=== PATIENT | male | born 1945 | race Caucasian/White ===

== ENCOUNTER 2020-12-07 11:17 | Emergency (ER) | payer MEDICARE, MEDICAID ==
[~2020-12-07] VITALS: Ht 177.8 cm; Wt 91.9 kg
--- NOTE | 2020-12-07 12:06 | PHYS DOC ---
Past History Past Medical History: CAD, High Cholesterol, Heart Disease, Hypertension, Hypothyroid Past Surgical History: Coronary Bypass Surgery, Tonsillectomy Alcohol Use: None Adult General Chief Complaint Chief Complaint: WEAKNESS/GENERALIZED HPI HPI Patient is a 75-year-old male who presents with for generalized weakness. No known inciting event, ingestion, recent illness or significant medical changes. Reports weakness has been ongoing for past 1 to 2 weeks. States over past 72 hours he has had less desire to eat eat and/or drink which is unusual for him. Also states he has decreased motivation and will to get up and do things he typically enjoys doing. He has extensive past medical history, has good access to primary care physician and specialist in outpatient setting, he has been not talked to them recently about recent episode of weakness. Of note, patient does admit that he has not been using home sleep at device for past several days due to not feeling motivated to put it on Review of Systems Review of Systems Fourteen body systems of review of systems have been reviewed. See HPI for pertinent positives and negative responses, other tao all other systems are negative, non-pertinent or non-contributory Allergies Allergies Allergies Coded Allergies Type Severity Reaction Last Updated Verified No Known Drug Allergies 12/07/20 No Physical Exam Physical Exam Constitutional: Well developed, well nourished, no acute distress, non-toxic appearance. HENT: Normocephalic, atraumatic, bilateral external ears normal, oropharynx dry, no oral exudates, nose normal. Eyes: PERRLA, EOMI, conjunctiva normal, no discharge. Neck: Normal range of motion, no tenderness, supple, no stridor. Cardiovascular: Heart rate regular, irregular rhythm consistent with atrial fibrillation, no murmurs rubs or gallops Lungs & Thorax: Bilateral breath sounds clear to auscultation Abdomen: Bowel sounds normal, soft, no tenderness, no masses, no pulsatile masses. Nonsurgical abdomen, no peritoneal signs Skin: Warm, dry, no erythema, no rash. Back: No tenderness, no CVA tenderness. Extremities: No tenderness, no cyanosis, no clubbing, ROM intact, no edema. Neurologic: Alert and oriented X 3, cranial nerves II through XII intact, normal motor & sensory function, no focal deficits noted. Psychologic: Affect normal, judgement normal, mood normal. Current Patient Data Vital Signs Vital Signs Date Time Temp Pulse Resp B/P (MAP) Pulse Ox O2 Delivery O2 Flow Rate FiO2 12/07/20 11:42 99.1 62 18 106/59 (75) 95 Room Air Lab Results Laboratory Tests Test 12/07/20 11:40 12/07/20 14:00 12/07/20 14:25 White Blood Count 4.6 x10^3/uL Red Blood Count 4.65 x10^6/uL Hemoglobin 15.4 g/dL Hematocrit 45.2 % Mean Corpuscular Volume 97 fL Mean Corpuscular Hemoglobin 33 pg Mean Corpuscular Hemoglobin Concent 34 g/dL Red Cell Distribution Width 12.7 % Platelet Count 145 x10^3/uL Neutrophils (%) (Auto) 58 % Lymphocytes (%) (Auto) 32 % Monocytes (%) (Auto) 9 % Eosinophils (%) (Auto) 0 % Basophils (%) (Auto) 1 % Neutrophils # (Auto) 2.7 x10^3uL Lymphocytes # (Auto) 1.5 x10^3/uL Monocytes # (Auto) 0.4 x10^3/uL Eosinophils # (Auto) 0.0 x10^3/uL Basophils # (Auto) 0.0 x10^3/uL Sodium Level 134 mmol/L Potassium Level 4.0 mmol/L Chloride Level 97 mmol/L Carbon Dioxide Level 30 mmol/L Anion Gap 7 Blood Urea Nitrogen 16 mg/dL Creatinine 1.3 mg/dL Estimated GFR (Cockcroft-Gault) 53.8 BUN/Creatinine Ratio 12 Glucose Level 139 mg/dL Calcium Level 8.7 mg/dL Total Bilirubin 0.7 mg/dL Aspartate Amino Transf (AST/SGOT) 37 U/L Alanine Aminotransferase (ALT/SGPT) 35 U/L Alkaline Phosphatase 82 U/L Troponin I Quantitative < 0.017 ng/mL KE-Gxs-H-Type Natriuretic Peptide 399 pg/mL Total Protein 7.0 g/dL Albumin 3.5 g/dL Albumin/Globulin Ratio 1.0 Urine Collection Type Unknown Urine Color Yellow Urine Clarity Clear Urine pH 6.0 Urine Specific [place] 1.020 Urine Protein Neg Urine Glucose (UA) Neg mg/dL Urine Ketones (Stick) Neg mg/dL Urine Blood Trace Urine Nitrite Neg Urine Bilirubin Neg Urine Urobilinogen Dipstick 0.2 mg/dL Urine Leukocyte Esterase Neg Urine RBC 1-2 /HPF Urine WBC Occ /HPF Urine Squamous Epithelial Cells Occ /LPF Urine Bacteria 0 /HPF Bedside Venous pH 7.39 Bedside Venous pCO2 46 mmHg Bedside Venous pO2 23 mmHg Venous Blood HCO3 28 mmol/L POC Venous O2 Saturation (Minh) 39 % Bedside FiO2 32 Current Medications Medications (Trade) Dose Ordered Sig/Terence Route PRN Reason Start Time Stop Time Status Last Admin Dose Admin Sodium Chloride 500 ml @ 0 mls/hr 1X ONCE IV 12/07/20 12:45 12/07/20 12:53 DC 12/07/20 12:45 EKG EKG EKG ordered and interpreted by myself at 1150 hrs. as atrial fibrillation with a rate of 65 bpm, unremarkable intervals, left axis deviation, no obvious ischemic findings, no STEMI Radiology/Procedures Radiology/Procedures EXAM: Chest, single view. HISTORY: Weakness. COMPARISON: None. FINDINGS: A frontal view of the chest is obtained. There is no infiltrate, pleur al fusion or pneumothorax. There is a prominent cardiac silhouette and evidence of prior CABG. There is an incidental healed right clavicle fracture. IMPRESSION: No acute pulmonary finding. Prominent cardiac silhouette. Electronically signed by: Sweetie Cormier MD (12/07/2020 12:18 PM) [id number] Heart Score C/O Chest Pain: No HEART Score for Chest Pain: HEART Score for Chest Pain Response (Comments) Value History Moderately Suspicious 1 ECG Normal 0 Age > 65 2 Risk Factors >3 Risk Factors or Hx CAD 2 Troponin < Normal Limit 0 Total 5 Risk Factors: Risk Factors: DM, Current or recent (<one month) smoker, HTN, HLP, family history of CAD, obesity. Risk Scores: Risk Factors: DM, Current or recent (<one month) smoker, HTN, HLP, family history of CAD, obesity. Course & Med Decision Making Course & Med Decision Making Discussed with the patient all findings and diagnostic testing. I discussed most likely diagnosis of generalized weakness with no emergent and/or surgical findings or cause at present that necessitates further diagnostic work-up in ER setting and/or hospital admission. I did discuss utility of hospital admission with on-call hospitalist at [facility] but my request was declined due to lack of criteria. As such, I stressed need for close outpatient follow-up to review today's ER visit. I recommended patient restart wearing CPAP as instructed during sleeping. I also advised patient to increase p.o. intake with nutritional supplements such as boost or Ensure shakes. I screened patient for depression, denies SI/HI, this could be something which is contributing to patient's presentation today. Strict return precautions were also discussed at length with good understanding by patient. Patient voiced understanding and agreement with the plan. Patient knows to come back for repeat evaluation if concerning signs or symptoms present prior to outpatient follow-up. Hemodynamically stable, ambulatory and well-appearing at time of disposition. Dragon Disclaimer Dragon Disclaimer This electronic medical record was generated, in whole or in part, using a voice recognition dictation system. Departure Departure: Impression: Primary Impression: Weakness Disposition: HOME / SELF CARE / HOMELESS Condition: STABLE Referrals: EDGARDO LOOMIS (PCP) Patient Instructions: Weakness Additional Instructions: As discussed prior to ER departure, your vital signs, physical exam, laboratory analysis and radiographs were all unremarkable for any emergent or surgical issues. As discussed, you need to ensure you utilize your CPAP when sleeping. You need to contact your primary care physician and I recommend remote mortgage underwriter immediately after your departure to review your ER visit today and need for close outpatient follow-up in upcoming 3 to 5 days for repeat evaluation. I did disclose this might be an acute presentation of more concerning pathology and so, close observation of your symptoms and low threshold to return for care is advised. Any concerning signs or symptoms present prior to outpatient follow-up please do not hesitate to come back for repeat evaluation. It was a pleasure to take care of you and I wish you the best going forward ERICKSON CACERES DO Dec 07, 2020 12:06
[2020-12-07 12:11] LABS: BASO % 1 % (0-3); EOS % 0 % (0-3); HEMATOCRIT 45.2 % (39.0-53.0); HEMOGLOBIN 15.4 g/dL (13.0-17.5); LYMPH # 1.5 x10^3/uL (1.0-4.8); LYMPH % 32 % (24-48); MEAN CORPUSCULAR HEMOGLOBIN 33 pg (25-35); MEAN CORPUSCULAR HGB CONC 34 g/dL (31-37); MEAN CORPUSCULAR VOLUME 97 fL (79-100); MONO # 0.4 x10^3/uL (0.0-1.1); MONO % 9 % (0-9); NEUT # 2.7 x10^3uL (1.8-7.7); NEUT % 58 % (31-73); PLATELET COUNT 145 x10^3/uL (140-400); RED BLOOD COUNT 4.65 x10^6/uL (4.30-5.70); RED CELL DISTRIBUTION WIDTH 12.7 % (11.5-14.5); WHITE BLOOD COUNT 4.6 x10^3/uL (4.0-11.0)
[2020-12-07 12:14] LABS: CALCIUM 8.7 mg/dL (8.5-10.1); CREATININE 1.3 mg/dL (0.7-1.3); GFR 53.8
--- NOTE | 2020-12-07 12:20 | RAD ---
EXAM: Chest, single view. HISTORY: Weakness. COMPARISON: None. FINDINGS: A frontal view of the chest is obtained. There is no infiltrate, pleural fusion or pneumoth orax. There is a prominent cardiac silhouette and evidence of prior CABG. There is an incidental heal ed right clavicle fracture. IMPRESSION: No acute pulmonary finding. Prominent cardiac silhouette. Electronically signed by: Sweetie Cormier MD (12/07/2020 12:18 PM) [id number]
[2020-12-07 12:26] LABS: ALBUMIN 3.5 g/dL (3.4-5.0); TOTAL BILIRUBIN 0.7 mg/dL (0.2-1.0)
[2020-12-07] MEDS ORDERED: IV NORMAL SALINE 500ML 500 ML IV ONE (12:45)
--- NOTE | 2020-12-07 12:46 | EKG ---
[address] [address] Test Date: 2020-12-07 Test Time: 11:45:45 Pat Name: BRANDAN DURBIN Department: Room: Gender: M Technical Applications Specialist: MARYANNE : 1945 Requested By: ERICKSON CACERES Order Number: [id number] Reading MD: Measurements Intervals [place] Rate: 65 P: ID: QRS: -13 QRSD: 92 T: 2 QT: 386 QTc: 406 Interpretive Statements IRREGULAR RHYTHM, NO P-WAVE FOUND LEFTWARD AXIS R-S TRANSITION ZONE IN V LEADS DISPLACED TO THE LEFT QRS(T) CONTOUR ABNORMALITY CONSISTENT WITH INFERIOR INFARCT PROBABLY OLD ABNORMAL ECG RI6.02 No previous ECG available for comparison
[2020-12-07 14:34] LABS: BILIRUBIN,URINE NEG (NEG); CLARITY,URINE CLEAR; COLOR,URINE YELLOW; GLUCOSE,URINE NEG (NEG); NITRITE,URINE NEG (NEG); UROBILINOGEN,URINE 0.2 mg/dL (0.2 mg/dL); WBC,URINE OCC /HPF (0-4)
[2020-12-07 14:35] LABS: BACTERIA,URINE 0 /HPF (0-FEW); SQUAMOUS EPITHELIAL CELL,UR OCC /LPF
[2020-12-07 15:00] VITALS: BP 130/70
== END 2020-12-07 15:41 | disposition home or self-care (01) ==
LOC: ER 11:17
DX: R53.1 Weakness (principal); E78.5 Hyperlipidemia, unspecified; I10 Essential (primary) hypertension
CPT/HCPCS: 36415; 71045; 80053; 81001; 82803; 83880; 84484; 85025; 93005; 96360; 99285; J7040

== ENCOUNTER → 2020-12-11 | Outpatient (CLI) | payer MEDICARE, MEDICAID ==
[2020-12-07 15:00] VITALS: BP 130/70
[~2020-12-11] MED LIST: IOHEXOL 240 MG/ML 50ML VIAL. ONE; IOHEXOL 240 MG/ML 50ML VIAL. PO ONE; IOHEXOL 300 MG/ML 75 ML VIAL. IV ONE
--- NOTE | 2020-12-11 10:34 | RAD ---
EXAMINATION: CT abdomen and pelvis with IV contrast. INDICATION:75 years, Male, fatigue and anorexia. TECHNIQUE: Axial CT images of the abdomen and pelvis were obtained. Coronal and sagittal reformatted performed. COMPARISON: None. Exposure: One or more of the following individualized dose reduction techniques were utilized for thi s examination: 1. Automated exposure control 2. Adjustment of the mA and/or kV according to patient size 3. Use of iterative reconstruction technique. FINDINGS: LOWER CHEST: Dependent subsegmental atelectasis. ABDOMEN/PELVIS: Normal morphology and size of the liver with homogeneous enhancement. No suspicious focal hepatic les ion. Unremarkable gallbladder, biliary ducts and spleen. Moderate atrophic pancreas with fat infiltra tion. No adrenal nodule. No hydronephrosis or nephrolithiasis in either kidney. Simple bilateral sunita ical cysts with the largest in the upper pole right kidney measures 4.2 cm. Additional, subcentimeter hypodensities in both renal cortices, too small to characterize. Nonspecific bilateral perinephric f at stranding. No bowel obstruction or wall thickening. Appendix is not visualized. Small size hiatal hernia. Modera te to severe aortoiliac atherosclerotic calcifications. Focal ectasia in the infrarenal abdominal aor ta measures up to 2.9 cm in diameter. 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 No pneumoperitoneum or ascites. No abdominopelvic lymphadenopathy by size crit eria. Merissa fat in the central small bowel mesentery with prominent mesenteric lymph nodes, nonspecif ic findings and can be seen in mesenteric panniculitis. Unremarkable urinary bladder. Coarse calcific ations in the prostate. No suspicious pelvic masses. MUSCULOSKELETAL: Small fat-containing umbilical hernia. No acute osseous process. Multilevel degenerative changes in t he spine. Sclerotic lesion in the right acetabulum, favors benign etiology such as bone island. IMPRESSION: 1. No acute abnormality in the abdomen or pelvis. 2. Focal ectasia in the infrarenal abdominal aorta measures up to 2.9 cm in diameter. 3. Other chronic/incidental findings, as described above. Electronically signed by: Kassie More MD (12/11/2020 10:31 AM) [id number]
== END ==
LOC: CT 09:08
PROVIDERS: ATTEND Family Medicine
DX: K42.9 Umbilical hernia without obstruction or gangrene (principal); R53.83 Other fatigue; R63.0 Anorexia; K86.89 Other specified diseases of pancreas
CPT/HCPCS: 74177; Q9967

== ENCOUNTER → 2020-12-14 | Outpatient (CLI) | payer MEDICARE, MEDICAID ==
[2020-12-07 15:00] VITALS: BP 130/70
[~2020-12-14] MED LIST changes: -IOHEXOL 240 MG/ML 50ML VIAL. ONE; -IOHEXOL 240 MG/ML 50ML VIAL. PO ONE; -IOHEXOL 300 MG/ML 75 ML VIAL. IV ONE; +IOHEXOL 350 MG/ML 100 ML VIAL. IV ONE
--- NOTE | 2020-12-14 12:00 | RAD ---
EXAM: CT chest with contrast - pulmonary embolus protocol CLINICAL HISTORY: Reason: SHORT OF BREATH, FATIGUE, COUGH, HYPOXIA / Spl. Instructions: / History: . COMPARISON: None. TECHNIQUE: CT of the chest following the administration of intravenous contrast during the pulmonary arterial phase. Axial, coronal and sagittal reformatted images were generated including MIP images. ---PQRS compliance statement - One or more of the following individualized dose reduction techniques were utilized for this study: 1. Automated exposure control 2. Adjustment of the mA and/or kV according to patient size 3. Use of iterative reconstruction technique--- FINDINGS: CHEST: Diagnostic quality: Adequate. Pulmonary emboli: None seen Right heart strain: None Pulmonary arteries: Normal in caliber. Heart is not enlarged. No pericardial effusion. Coronary calcifications are seen. Aortic calcificatio ns are noted. Small hiatal hernia. Thyroid is small. Multiple small mediastinal lymph nodes are seen. An AP window lymph node is borderline enlarged measuring 1.7 x 1.1 cm. Enlarged right hilar lymph no shavon are seen, for example a 1.5 x 1.3 cm right hilar lymph node is seen. No pleural effusion or pneumothorax. Problems opacities are seen bilaterally. Interstitial prominence is also seen. No suspicious lung nod ule or mass is seen although could be obscured by the bilateral parenchymal opacities. Visualized Upper abdomen: Right upper pole renal cyst is seen. Right interpolar renal cyst is seen. Vascular calcifications are seen. Small hiatal hernia. Bones: Degenerative changes of the spine are seen. No aggressive osseous lesion. IMPRESSION: 1. No evidence for acute pulmonary embolus. 2. Bilateral groundglass parenchymal opacities with interstitial prominence may represent multifocal consolidative process such as pneumonia, including viral pneumonia. Imaging follow-up to resolution is recommended to exclude underlying mass. 3. Mediastinal and right hilar lymphadenopathy may be reactive. 4. Small hiatal hernia. Electronically signed by: Corbin Barnett MD (12/14/2020 11:58 AM) [id number]
== END ==
LOC: CT 10:36
PROVIDERS: ATTEND Family Medicine
DX: R05 Cough (principal); R06.02 Shortness of breath; R53.83 Other fatigue; R09.02 Hypoxemia; K44.9 Diaphragmatic hernia without obstruction or gangrene
CPT/HCPCS: 71275; Q9967

== ENCOUNTER 2021-01-01 23:57 | Emergency (ER) | payer MEDICARE, MEDICAID ==
[~2021-01-01] VITALS: Ht 179.1 cm; Wt 91.7 kg
--- NOTE | 2021-01-02 00:29 | PHYS DOC ---
Past History Past Medical History: CAD, High Cholesterol, Heart Disease, Hypertension, Hypothyroid Past Surgical History: Coronary Bypass Surgery, Tonsillectomy Alcohol Use: None Adult General Chief Complaint Chief Complaint: CONSTIPATION HPI HPI Patient is a 75-year-old male who presents to the emergency department with constipation. States that he has not had a bowel movement in 2 days which is unusual for him as he usually has 1 every day. States that before that he was having normal bowel movements. Denies any recent traumas, illnesses, fevers, chest pain, shortness of breath, abdominal pain, nausea, vomiting, dysuria, hematuria, diarrhea or blood in the stool. States he is otherwise been eating and drinking normally for him. States he is otherwise making urine normally. Review of Systems Review of Systems Review of systems otherwise unremarkable except noted in HPI Allergies Allergies Allergies Coded Allergies Type Severity Reaction Last Updated Verified No Known Drug Allergies 12/07/20 No Physical Exam Physical Exam Constitutional: Well developed, well nourished, no acute distress, non-toxic appearance. [] HENT: Normocephalic, atraumatic, bilateral external ears normal, oropharynx moist, no oral exudates, nose normal. [] Eyes: conjunctiva normal, no discharge. [] Cardiovascular:Heart rate regular rhythm, no murmur [] Lungs & Thorax: Bilateral breath sounds clear to auscultation [] Abdomen: Bowel sounds normal, soft, no tenderness, no masses, no pulsatile masses. [] Skin: Warm, dry, no erythema, no rash. [] Back: No tenderness, no CVA tenderness. [] Extremities: No tenderness, ROM intact, no edema. [] Neurologic: Alert and oriented X 3, normal motor function, normal sensory function, no focal deficits noted. [] Psychologic: Affect normal, judgement normal, mood normal. [] Current Patient Data Vital Signs Vital Signs Date Time Temp Pulse Resp B/P (MAP) Pulse Ox O2 Delivery O2 Flow Rate FiO2 01/02/21 00:05 98.7 75 18 139/79 (99) 99 01/02/21 00:05 Room Air EKG EKG [] Radiology/Procedures Radiology/Procedures [] EXAM: ABDOMEN 2 VIEWS WITH PA CHEST History: Constipation, abdominal pain TECHNIQUE: An upright view the chest and upright and supine views of the abdomen COMPARISON: None available. FINDINGS: Mild cardiomegaly. Mild prominent bilateral interstitial lung markings likely chronic interstitial changes. Moderate amount of feces identified throughout the colon likely constipation. IMPRESSION: 1. Moderate amount of feces identified throughout the colon likely constipation. Electronically signed by: Ole Hauser MD (01/02/2021 12:40 AM) [id number] Heart Score C/O Chest Pain: No Risk Factors: Risk Factors: DM, Current or recent (<one month) smoker, HTN, HLP, family history of CAD, obesity. Risk Scores: Risk Factors: DM, Current or recent (<one month) smoker, HTN, HLP, family history of CAD, obesity. Course & Med Decision Making Course & Med Decision Making Patient is a 75-year-old male who presents with a chief complaint of constipation for 2 days Vital signs not concerning. Physical exam noted above. Imaging noted above with moderate amount of feces identified to the colon. And some interstitial lung changes. Gave mag citrate. Discussed all findings with patient. Gave recommendations for diet and nutrition for constipation. Advised to follow-up in the morning with his primary care physician. Gave return precautions to the ED. Patient grateful, verbalized understanding and agreed with plan of discharge. [] Dragon Disclaimer Dragon Disclaimer This electronic medical record was generated, in whole or in part, using a voice recognition dictation system. Departure Departure: Impression: Primary Impression: Constipation Disposition: 01 HOME / SELF CARE / HOMELESS Condition: GOOD Referrals: EDGARDO LOOMIS (PCP) Patient Instructions: Constipation, Adult Additional Instructions: Thank you for coming into the emergency department tonight and allowing us to take care of you. Please read all of the attached information very carefully to go back over the things we discussed here in the ED. Please begin a light clear diet as discussed over the next couple of days and add a [id number] stool softener such as MiraLAX. Please call your primary care physician first thing in the morning to update on your ED visit and set up a follow-up appointment as soon as possible. Please come back to the ED with new or concerning symptoms as discussed. TARA JERONIMO MD Jan 02, 2021 00:29
--- NOTE | 2021-01-02 00:42 | RAD ---
EXAM: ABDOMEN 2 VIEWS WITH PA CHEST History: Constipation, abdominal pain TECHNIQUE: An upright view the chest and upright and supine views of the abdomen COMPARISON: None available. FINDINGS: Mild cardiomegaly. Mild prominent bilateral interstitial lung markings likely chronic interstitial ch anges. Moderate amount of feces identified throughout the colon likely constipation. IMPRESSION: 1. Moderate amount of feces identified throughout the colon likely constipation. Electronically signed by: Ole Hauser MD (01/02/2021 12:40 AM) [id number]
[2021-01-02 01:05] VITALS: BP 128/74
[2021-01-02] MEDS ORDERED: MAGNESIUM CITRATE 296 ML SOLUTION. PO ONE (01:30)
== END 2021-01-02 01:06 | disposition home or self-care (01) ==
LOC: ER 23:57
DX: K59.00 Constipation, unspecified (principal); I25.810 Atherosclerosis of coronary artery bypass graft(s) without angina pectoris; E78.00 Pure hypercholesterolemia, unspecified; I11.9 Hypertensive heart disease without heart failure; E03.9 Hypothyroidism, unspecified
CPT/HCPCS: 74022; 99283

== ENCOUNTER 2021-01-02 10:50 | Emergency (ER) | payer MEDICARE, MEDICAID ==
[~2021-01-02] VITALS: Ht 179.1 cm; Wt 91.7 kg
[2021-01-02] MEDS ORDERED: BISACODYL 10 MG SUPP.RECT PR ONE (11:45)
[2021-01-02] MEDS ORDERED: GLYCERIN ADULT 1 SUPP.RECT. PR ONE (11:45)
--- NOTE | 2021-01-02 12:43 | PHYS DOC ---
Past History Past Medical History: CAD, High Cholesterol, Heart Disease, Hypertension, Hypothyroid Past Surgical History: Coronary Bypass Surgery, Tonsillectomy Alcohol Use: None General Adult EDM: Chief Complaint: CONSTIPATION HPI: HPI: 75-year-old male presents with constipation. He states that he has not had a bowel movement nearly a week. He tried magnesium citrate yesterday but did not have any bowel movement. He came to the ER today for assistance. He has no other complaints at this time. Review of Systems: Review of Systems: Constitutional: Denies fever or chills Eyes: Denies change in visual acuity HENT: Denies nasal congestion or sore throat Respiratory: Denies cough or shortness of breath Cardiovascular: Denies chest pain or edema GI: Constipation. Denies abdominal pain, nausea, vomiting, bloody stools or diarrhea : Denies dysuria Musculoskeletal: Denies back pain or joint pain Integument: Denies rash Neurologic: Denies headache, focal weakness or sensory changes Endocrine: Denies polyuria or polydipsia Lymphatic: Denies swollen glands Psychiatric: Denies depression or anxiety Current Medications: Current Meds: Current Medications Medications (Trade) Dose Ordered Sig/Terence Start Time Stop Time Status Last Admin Dose Admin Bisacodyl (Dulcolax Supp) 10 mg 1X ONCE 01/02/21 11:45 01/02/21 11:46 DC 01/02/21 11:48 10 MG Glycerin (Sani-Supp Adult) 1 supp 1X ONCE 01/02/21 11:45 01/02/21 11:46 DC 01/02/21 11:47 1 SUPP Allergies: Allergies: Allergies Coded Allergies Type Severity Reaction Last Updated Verified No Known Drug Allergies 12/07/20 No Physical Exam: PE: Constitutional: Well developed, well nourished, no acute distress, non-toxic appearance. [] HENT: Normocephalic, atraumatic, bilateral external ears normal, oropharynx moist, no oral exudates, nose normal. [] Eyes: PERRLA, EOMI, conjunctiva normal, no discharge. [] Neck: Normal range of motion, no tenderness, supple, no stridor. [] Cardiovascular:Heart rate regular rhythm, no murmur [] Lungs & Thorax: Bilateral breath sounds clear to auscultation [] Abdomen: Bowel sounds normal, soft, no tenderness, no masses, no pulsatile masses. [] Skin: Warm, dry, no erythema, no rash. [] Back: No tenderness, no CVA tenderness. [] Extremities: No tenderness, no cyanosis, no clubbing, ROM intact, no edema. [] Neurologic: Alert and oriented X 3, normal motor function, normal sensory function, no focal deficits noted. [] Psychologic: Affect normal, judgement normal, mood normal. [] Current Patient Data: Vital Signs: Vital Signs Date Time Temp Pulse Resp B/P (MAP) Pulse Ox O2 Delivery O2 Flow Rate FiO2 01/02/21 10:56 98.2 95 16 128/84 92 Room Air EKG: EKG: [] Radiology/Procedures: Radiology/Procedures: [] Heart Score: C/O Chest Pain: N/A Risk Factors: Risk Factors: DM, Current or recent (<one month) smoker, HTN, HLP, family history of CAD, obesity. Risk Scores: Score 0 - 3: 2.5% MACE over next 6 weeks - Discharge Home Score 4 - 6: 20.3% MACE over next 6 weeks - Admit for Clinical Observation Score 7 - 10: 72.7% MACE over next 6 weeks - Early Invasive Strategies Course & Med Decision Making: Course & Med Decision Making Pertinent Labs and Imaging studies reviewed. (See chart for details) The patient was given a couple of suppositories and had good productive stool. His KUB shows decreased hearing constipation. He is feeling much better. He is stable for discharge at this time. [] Dragon Disclaimer: Dragon Disclaimer: This electronic medical record was generated, in whole or in part, using a voice recognition dictation system. Departure Departure: Impression: Primary Impression: Constipation Disposition: HOME / SELF CARE / HOMELESS Condition: IMPROVED Referrals: EDGARDO LOOMIS (PCP) Patient Instructions: Constipation, Adult, [id number] CORBY HARDEN DO Jan 02, 2021 12:43
[2021-01-02 12:50] VITALS: BP 128/84
--- NOTE | 2021-01-02 13:13 | RAD ---
XR ABDOMEN 1V History: Constipation. Comparison: 01/02/2021 Technique: AP radiograph the abdomen. Findings: Bowel gas pattern: Nonspecific, nonobstructive bowel gas pattern with a few gas-filled loops of small bowel centrally. Interval decrease of stool burden compared to recent prior from the same night. Free air: No supine evidence for free air. Abnormal calcifications: Splenic artery and aortic vascular calcifications. Bones: Degenerative changes of the spine and hips. Other: None. Impression: 1. No acute abdominal findings. Interval decrease in apparent stool burden. Electronically signed by: Rashi Rodriguez MD (01/02/2021 1:10 PM) [id number]
== END 2021-01-02 12:50 | disposition home or self-care (01) ==
LOC: ER 10:50
DX: K59.00 Constipation, unspecified (principal); I11.9 Hypertensive heart disease without heart failure; I25.810 Atherosclerosis of coronary artery bypass graft(s) without angina pectoris; E78.00 Pure hypercholesterolemia, unspecified; E03.9 Hypothyroidism, unspecified
CPT/HCPCS: 74018; 99283

== ENCOUNTER → 2021-01-08 | Outpatient (CLI) | payer MEDICARE, MEDICAID ==
[2021-01-02 12:50] VITALS: BP 128/84
--- NOTE | 2021-01-08 16:19 | RAD ---
EXAM: Abdomen and pelvis CT without intravenous contrast. HISTORY: Flank pain. TECHNIQUE: Computed tomographic images of the abdomen and pelvis were obtained without contrast. Mult iplanar reformatting was performed. *One or more of the following individualized dose reduction techniques were utilized for this examina tion: 1. Automated exposure control. 2. Adjustment of the mA and/or kV according to patient size. 3. Use of iterative reconstruction technique. COMPARISON: 12/11/2020. FINDINGS: Evaluation of the lower thorax demonstrates bilateral basilar atelectasis and pleural paren chymal scarring. There is no infiltrate or pleural effusion. The heart is normal in size. There is co ronary artery atherosclerosis. There is no suspicious hepatic lesion. There is a small hiatal hernia. The gallbladder is unremarkable. There is a calcification within the duct, pancreas, likely due to th e sequela of chronic pancreatitis. The spleen is normal in size. The adrenal glands are unremarkable. There are simple appearing bilateral renal cysts, largest of which measures 4.0 cm on the right. The re is no evidence of nephrolithiasis or hydronephrosis. The urinary bladder is distended. There is a prominent prostate containing calcifications. There is no appendicitis. There is no bowel obstruction. There is moderate colonic stool. There is he avily calcified atherosclerotic plaque involving the aorta and aortic branch vessels. There is ectasi a of the infrarenal abdominal aorta to a caliber of 2.8 cm. There is a small solid nodule within the superior right paracolic gutter. There are degenerative changes involving the spine. There is no acut e or suspicious osseous lesion. IMPRESSION: 1. No evidence of nephrolithiasis or hydronephrosis. There is a distended urinary bladder. 2. Multiple simple appearing renal cysts. Follow-up is not routinely performed for simple cysts. 3. Stable ectasia of the abdominal aorta to a caliber of 2.8 cm. 4. Severe atherosclerosis involving the aorta and aortic branch vessels, better characterized on the prior contrast-enhanced exam. 5. Stable small nodule within the right paracolic gutter, possibly due to a lymph node. No additional enlarged lymph node or soft tissue implant is seen to suggest underlying neoplasm. Electronically signed by: Sweetie Cormier MD (01/08/2021 4:16 PM) [id number]
== END ==
LOC: CT 15:34
PROVIDERS: ATTEND Family Medicine
DX: K44.9 Diaphragmatic hernia without obstruction or gangrene (principal); I77.811 Abdominal aortic ectasia; J98.11 Atelectasis; J98.4 Other disorders of lung; I25.10 Atherosclerotic heart disease of native coronary artery without angina pectoris; N32.89 Other specified disorders of bladder; N20.0 Calculus of kidney
CPT/HCPCS: 74176

== ENCOUNTER → 2021-02-12 | Outpatient (CLI) | payer MEDICARE, MEDICAID ==
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
== END ==
LOC: RAD 09:46
PROVIDERS: ATTEND Family Medicine
DX: M25.461 Effusion, right knee (principal); M25.861 Other specified joint disorders, right knee; I70.90 Unspecified atherosclerosis; M76.9 Unspecified enthesopathy, lower limb, excluding foot; M25.561 Pain in right knee
CPT/HCPCS: 73562